=== PATIENT | male | born 1930 | race Caucasian/White ===

== ENCOUNTER 2017-04-17 06:22 | Day surgery (SDC) | payer MEDICARE, OTHER ==
[2017-04-17] VITALS (13 sets, daily range): BP systolic 122–173; BP diastolic 62–91
[~2017-04-17] VITALS: Ht 182.9 cm; Wt 83.5 kg
[~2017-04-17 06:22] MED LIST: ASP81TEC PO; ATRV10T PO; SULF1TAB38 PO
[2017-04-17] MEDS ORDERED: LIDOCAINE 1% INJ 20 ML (XYLOCAINE) VIAL ONE (07:06)
[2017-04-17] MEDS ORDERED: fentaNYL INJECTION 100 MCG/2 ML AMP ONE (07:06)
[2017-04-17 07:44] LABS: MEAN PLATELET VOLUME 11.3 FL (7.4-10.4); RED BLOOD COUNT 4.5 10^6/uL (4.35-5.85); RED CELL DISTRIBUTION WIDTH 14.9 % (10.0-14.5); WHITE BLOOD COUNT 13.2 10^3/uL (4.3-11.0)
[2017-04-17 07:53] LABS: PROTHROMBIN TIME PATIENT 13.2 SEC (12.2-14.7)
[2017-04-17] MEDS ORDERED: LIDOCAINE 1% INJ 20 ML (XYLOCAINE) VIAL INJ ONE (08:00)
[2017-04-17] MEDS ORDERED: NS IV 1000 ML 1,000 ML ONE (08:07)
[2017-04-17] MEDS ORDERED: MIDAZOLAM 2 MG/2 ML (VERSED) VIAL ONE (08:07)
[2017-04-17] MEDS ORDERED: fentaNYL INJECTION 100 MCG/2 ML AMP IVP PRN (10:45)
[2017-04-17] MEDS ORDERED: NS IV 1000 ML 1,000 ML IV SCH (10:45)
[2017-04-17] MEDS ORDERED: MIDAZOLAM 10 MG/2 ML (VERSED) VIAL IVP ONE (10:45)
[2017-04-17] MEDS: HYDROcodone/APAP 5 MG/325 MG (LORTAB) TAB PO PRN ×2 (10:55→11:16)
[2017-04-17] MEDS ORDERED: IBUP-1773 PO (12:13)
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
--- NOTE | 2017-04-17 14:12 | Diagnostic Imaging Report ---
INDICATION: Liver mass. TECHNIQUE AND FINDINGS: After explaining the risks, benefits, and alternatives of the procedure to the patient, written consent was obtained. Conscious sedation was performed with Versed and fentanyl under constant nursing supervision. A preliminary CT scan was obtained for localization purposes. The patient's right abdominal wall was prepped and draped utilizing maximal sterile barrier technique. Local anesthesia was obtained with 2% lidocaine. An 18-gauge Temno needle was advanced to the lesion under CT guidance. Five core biopsy specimens were obtained and submitted directly to Pathology for evaluation. Following the procedure, the needle was removed and adequate hemostasis was obtained. The patient tolerated the procedure well and left the Department in stable condition. IMPRESSION: Successful CT-guided liver biopsy as described. Dictated by: Dictated on workstation # [id number]
== END 2017-04-17 13:04 | disposition home or self-care (01) ==
LOC: RAD 06:22 → SURG 09:17 → RAD 13:04
PROVIDERS: ATTEND Family Medicine
DX: C22.9 Malignant neoplasm of liver, not specified as primary or secondary (principal); I25.10 Atherosclerotic heart disease of native coronary artery without angina pectoris; E78.5 Hyperlipidemia, unspecified; I71.4 Abdominal aortic aneurysm, without rupture; I25.2 Old myocardial infarction; Z95.1 Presence of aortocoronary bypass graft; Z95.5 Presence of coronary angioplasty implant and graft; Z87.891 Personal history of nicotine dependence
CPT/HCPCS: 36415; 77012; 85027; 85610; 85730

== ENCOUNTER → 2017-05-02 | Outpatient (CLI) | payer MEDICARE, OTHER ==
[~2017-05-02] MED LIST changes: +IBUP-1773 PO
--- NOTE | 2017-05-03 13:51 | Diagnostic Imaging Report ---
EXAMINATION: PET-CT. TECHNIQUE: The serum glucose level at the time of the study is: 96 mg/dL. 10.9 mCi of FDG was administered intravenously followed by obtaining PET images with corresponding noncontrast CT scan images. The CT scan was performed for anatomic correlation and attenuation correction and was not performed according to the diagnostic protocol of the areas covered. The scan was performed of the entire body. INDICATION: High-grade neuroendocrine carcinoma. FINDINGS: There are numerous hypermetabolic masses seen in a diffuse fashion within the osseous structures involving the spine, multiple ribs, sternum, and pelvis. Osseous metastases include a large mass in the sacrum which appears to extend into the sacral canal and an L5 level mass extending into the spinal canal which could be associated with nerve root compression. These osseous lesions are associated with lytic components although some of the bone lesions demonstrate no associated osseous change. There is a lesion in the vertebral body of L2 with large soft tissue extension laterally on the left side involving the left psoas muscle with a total mass size in the axial plane of 5 x 3.8 cm. There is a large portacaval hypermetabolic lymph node mass measuring 5.5 x 1.7 cm. The liver is diffusely involved with hypermetabolic masses with large confluent lesions appearing to be present within the right hepatic lobe and central aspect of the liver anteriorly, larger than 5 cm in size. In the chest, there are hypermetabolic mediastinal lymph nodes and a right hilar prominently hypermetabolic mass measuring 2.8 x 3.1 cm. A 2.5 cm infracarinal prominently hypermetabolic lymph node is seen. The SUV value in the right hilar mass is up to 11. Another dominant mass in the chest is seen posteriorly in the upper aspect of the chest projecting into the lung but is probably arising from the intercostal space or the third right rib rather than within the lung itself. There is also a soft tissue lesion exophytic anteriorly near the left costal margin to the left of the lower aspect of the sternum projecting anteriorly into the subcutaneous fat and bulging the skin at this level. In the lower extremities, there are scattered mildly hypermetabolic lesions within the femur on both sides and in the proximal right fibula, likely related to metastatic disease. IMPRESSION: 1. 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 There is also a right hilar mass as well as mediastinal and abdominal lymph nodes. The right hilar mass could be a primary tumor site. 2. The metastatic masses in the L5 vertebral body and in the sacrum appear to extend to the spinous canal and could be associated with nerve root compression. If indicated, an MRI of the lumbar spine and sacrum could be of benefit for further evaluation. 3. A large mass in the L2 vertebral body has prominent soft tissue extension into the left psoas muscle. Dictated by: Dictated on workstation # [id number]
== END ==
LOC: RAD 08:57
PROVIDERS: ATTEND Family Medicine
DX: C7B.02 Secondary carcinoid tumors of liver (principal)
CPT/HCPCS: 78816